=== PATIENT | male | born 1940 | race Caucasian/White ===

== ENCOUNTER 2017-02-08 11:52 | Emergency (ER) | payer MEDICARE, OTHER ==
[2017-02-08] MEDS ORDERED: methylPREDNISolone Sod Succ/PF 125 MG/2 ML VIAL ONE (12:22)
[2017-02-08 12:42] LABS: #Basophils 0.1 thou/uL (0.0-0.2); #Eosinphils 0.1 thou/uL (0.0-0.7); #Monocytes 1.2 thou/uL (0.11-0.59); #Neutrophils 14.2 thou/uL (1.40-6.50); %Basophils 0.6 % (0.0-1.0); %Eosinophils 0.7 % (0.0-10.0); %Lymphocytes 11.4 % (21.0-51.0); %Monocytes 6.8 % (0.0-10.0); %Neutrophils 80.6 % (42.0-75.0); Hemoglobin 16.1 g/dL (14.0-18.0); Mean Corpuscular HGB CONC 31.1 g/dL (32.0-36.0); Mean Corpuscular Hemoglobin 25.4 pg (27.0-31.0); Mean Corpuscular Volume 81.8 fl (80.0-94.0); Platelet Count 244 thou/uL (130-400); Red Blood Cell (RBC) Count 6.34 mill/uL (4.70-6.10); White Blood Cell (WBC) Count 17.6 thou/uL (4.8-10.8)
--- NOTE | 2017-02-08 12:47 | RAD ---
RADIOGRAPH CHEST 2 VIEWS: HISTORY: A 76-year-old male with cough, chills, hypotension, and chest congestion. FINDINGS: The thoracic aorta is tortuous and ectatic. There is no evidence of air space density, pneumothorax, or pulmonary edema. There is no cardiomegaly or pleural effusion. IMPRESSION: 1) No acute cardiopulmonary findings. 2) Ectasia of thoracic aorta. elza [] POS: [facility]
[2017-02-08 13:00] LABS: Anion Gap 16 mmol/L (10-20); BUN (Urea Nitrogen) 19 mg/dL (8.4-25.7); Calc. Creatinine Clearance 0 mL/min (70-130); Calcium 9.4 mg/dL (7.8-10.44); Carbon Dioxide 24 mmol/L (23-31); Chloride 103 mmol/L (98-107); Estimated GFR-MDRD 48; Glucose 114 mg/dL (83-110); Sodium 139 mmol/L (136-145)
[2017-02-08 13:04] LABS: CKMB 0.8 ng/mL (0-6.6); Troponin I 0.017 ng/mL (< 0.028)
[2017-02-08] MEDS ORDERED: Doxycycline Hyclate 100 MG TAB ONE (13:49)
== END 2017-02-08 14:50 | disposition home or self-care (01) ==
LOC: SCSER 11:52
DX: J40 Bronchitis, not specified as acute or chronic (principal); K21.9 Gastro-esophageal reflux disease without esophagitis; E78.5 Hyperlipidemia, unspecified; I10 Essential (primary) hypertension; Z87.891 Personal history of nicotine dependence; Z79.899 Other long term (current) drug therapy; Z79.84 Long term (current) use of oral hypoglycemic drugs
CPT/HCPCS: 71020; 80048; 82553; 83880; 84484; 85025; 93005; J2930; J7620

== ENCOUNTER 2018-02-04 06:15 | Outpatient (CLI) | payer MEDICARE, OTHER ==
[2018-02-04 13:43] LABS: #Eosinphils 0.2 thou/uL (0.0-0.7); #Lymphocytes 1.1 thou/uL (1.20-3.40); #Monocytes 0.8 thou/uL (0.11-0.59); #Neutrophils 8.5 thou/uL (1.40-6.50); %Eosinophils 1.5 % (0.0-10.0); %Lymphocytes 10.6 % (21.0-51.0); %Monocytes 7.7 % (0.0-10.0); %Neutrophils 80.2 % (42.0-75.0); Hemoglobin 15.8 g/dL (14.0-18.0); Mean Corpuscular HGB CONC 31.2 g/dL (32.0-36.0); Mean Corpuscular Hemoglobin 26.8 pg (27.0-31.0); Mean Corpuscular Volume 85.9 fL (78.0-98.0); Mean Platelet Volume 9.7 fL (7.4-10.4); Platelet Count 230 thou/uL (130-400); RBC Distribution Width 14.2 % (11.5-14.5); Red Blood Cell (RBC) Count 5.89 mill/uL (4.70-6.10); White Blood Cell (WBC) Count 10.5 thou/uL (4.8-10.8)
[2018-02-04 13:52] LABS: PTT 28.7 SEC (22.9-36.1)
[2018-02-04 13:53] LABS: INR-International Normal Ratio 1.1; Prothrombin Time 13.9 SEC (12.0-14.7)
[2018-02-04 14:07] LABS: Anion Gap 13 mmol/L (10-20); BUN (Urea Nitrogen) 26 mg/dL (8.4-25.7); Bilirubin Negative (Negative); Blood, Urine Negative (Negative); Calc. Creatinine Clearance 0 mL/min (70-130); Calcium 9.5 mg/dL (7.8-10.44); Carbon Dioxide 25 mmol/L (23-31); Chloride 109 mmol/L (98-107); Clarity CLOUDY (Clear); Estimated GFR-MDRD 72; Glucose 112 mg/dL (83-110); Glucose, Urine (Dipstick) Negative (Negative); Leukocyte Negative (Negative); Nitrite Negative (Negative); Potassium 3.8 mmol/L (3.5-5.1); Protein, Urine (Dipstick) Negative (Neg-Trace); Sodium 143 mmol/L (136-145); Specific Gravity, Urine 1.029 (1.002-1.036); pH, Urine 5.5 (5.0-9.0)
[2018-02-04 14:09] LABS: Bacteria/HPF None Seen HPF (None Seen); Hyaline Casts/LPF 0-3 HYALINE CAST LPF (0-3 Hyaline); Squamous Epithelial None Seen HPF (0-3); WBC/HPF 0-3 HPF (0-3)
[2018-02-04 14:29] LABS: RBC/HPF 0-3 HPF (0-3)
== END 2018-02-04 06:16 | disposition home or self-care (01) ==
LOC: LABBT 06:15
PROVIDERS: ATTEND Orthopaedic Surgery
DX: Z01.818 Encounter for other preprocedural examination (principal); M17.0 Bilateral primary osteoarthritis of knee
CPT/HCPCS: 80048; 81001; 85025; 85610; 85730; 87081; 93005; 93010

== ENCOUNTER 2018-02-04 13:30 | Inpatient (IN) | payer MEDICARE, OTHER ==
[2018-02-23] MEDS ORDERED: Promethazine HCl 25 MG/ML VIAL IM PRN ×3 (07:00→10:41)
[2018-02-23] MEDS ORDERED: Fentanyl 100 MCG/2 ML VIAL SLOW IVP PRN ×2 (07:00)
[2018-02-23] MEDS ORDERED: diphenhydrAMINE 25 MG CAP PO PRN (07:00)
[2018-02-23] MEDS ORDERED: HYDROcodone/Acetaminophen 10/325 mg Tablet PO PRN ×2 (07:00)
[2018-02-23] MEDS ORDERED: Ondansetron PF 4 MG/2 ML Vial IVP PRN ×2 (07:00→08:56)
[2018-02-23] MEDS ORDERED: Zolpidem Tartrate 5 MG TAB PO PRN ×2 (07:00→08:56)
[2018-02-23] MEDS ORDERED: Acetaminophen 325 MG TAB PO PRN (07:00)
[2018-02-23] MEDS ORDERED: Tranexamic Acid 1,000 MG/10 ML VIAL ONE (07:50)
[2018-02-23] MEDS ORDERED: Levofloxacin 500 mg/D5W 100 ml Premix Bag ONE (07:50)
[2018-02-23] MEDS ORDERED: Sodium Chloride 0.9% 100 ML ONE (07:50)
[2018-02-23] MEDS ORDERED: Fentanyl 100 MCG/2 ML VIAL ONE ×3 (08:29→11:29)
[2018-02-23] MEDS ORDERED: Midazolam HCl 2 mg/2 ml Vial ONE (08:29)
[2018-02-23] MEDS ORDERED: traMADol HCl 50 MG TAB PO PRN ×2 (08:56)
[2018-02-23] MEDS ORDERED: Fentanyl 100 MCG/2 ML VIAL IV PRN (08:57)
[2018-02-23] MEDS ORDERED: Vancomycin HCl 1.5 GM in Sodium Chloride 0.9% 250 ML 300 ML IVPB SCH ×2 (09:15→21:00)
[2018-02-23] MEDS ORDERED: Promethazine HCl 25 MG/ML VIAL SLOW IVP PRN (10:41)
[2018-02-23] MEDS ORDERED: PACU-Morphine 4MG/ML VIAL SLOW IVP PRN (10:41)
[2018-02-23] MEDS ORDERED: HYDROmorphone 2 MG/ML VIAL SLOW IVP PRN (10:41)
[2018-02-23] MEDS ORDERED: Ondansetron HCl/PF 4 MG/2 ML Vial IVP PRN (10:41)
--- NOTE | 2018-02-23 12:37 | RAD ---
TWO VIEWS LEFT KNEE: History: Status post arthroplasty. Comparison: None. FINDINGS: There are findings compatible with left knee arthroplasty. Post-operative changes are noted. Alignmen t is near anatomic. Vascular calcifications are identified. IMPRESSION: Findings compatible with left knee arthroplasty. POS: [facility]
[2018-02-23] MEDS ORDERED: Bupivacaine 0.25% HCL 30 ML VIAL ONE (13:40)
[2018-02-23] MEDS ORDERED: Ropivacaine 0.5% HCl/PF (150 MG/30 ML VIAL) ONE (13:40)
[2018-02-23] MEDS ORDERED: Ketorolac Tromethamine 30 MG/ML VIAL IVP SCH (14:00)
[2018-02-23] MEDS ORDERED: PROPOFOL 200 MG/20 ML VIAL ONE (14:39)
[2018-02-23] MEDS ORDERED: Lidocaine 1% PF 5 ML VIAL ONE (14:39)
[2018-02-23] MEDS ORDERED: Ketorolac Tromethamine 30 MG/ML VIAL ONE (14:39)
[2018-02-23] MEDS ORDERED: ePHEDrine/0.9% NaCl/PF SYRINGE 50 mg/10 ml ONE (14:39)
[2018-02-23] MEDS ORDERED: Dexamethasone 20 MG/5 ML VIAL ONE (14:39)
[2018-02-23] MEDS ORDERED: Ondansetron PF 4 MG/2 ML Vial ONE (14:39)
[2018-02-23] MEDS: metFORMIN 500 MG TAB PO SCH (15:14)
[2018-02-23] MEDS: Sodium Chloride 0.9% 1,000 ML IV SCH ×2 (15:14→17:54)
[2018-02-23] MEDS: Amlodipine 5 MG TAB PO SCH (15:14)
[2018-02-23] MEDS: Brimonidine Tartrate 0.2% Ophth Soln 5 ml Bottle EA EYE SCH ×2 (15:15→21:00)
[2018-02-23] MEDS: Atorvastatin Calcium 10 MG TAB PO SCH (15:15)
[2018-02-23] MEDS: Losartan 25 MG TAB PO SCH (15:15)
[2018-02-23] MEDS: Ketorolac Tromethamine 30 MG/ML VIAL IVP SCH ×2 (15:15→17:53)
[2018-02-23] MEDS: Famotidine 20 MG TAB PO SCH (15:15)
[2018-02-23] MEDS: Timolol 0.5% Ophth Soln 5 ml Bottle EA EYE SCH ×2 (15:15→21:00)
[2018-02-23] MEDS: Carvedilol 6.25 MG TAB PO SCH ×2 (15:15→20:40)
[2018-02-23] MEDS: Aspirin 81 mg Enteric Coated Tablet PO SCH ×2 (15:15→20:40)
[2018-02-23 16:07] VITALS: BMI 32.1
[2018-02-23] MEDS ORDERED: HumaLOG 300 UNITS/3 ML VIAL SC PRN ×2 (17:13)
[2018-02-23] MEDS ORDERED: Dextrose 5% in Water 1,000 ML IV PRN (17:13)
[2018-02-23] MEDS ORDERED: Dextrose 50% Abboject 50 ML SYRINGE SLOW IVP PRN (17:13)
--- NOTE | 2018-02-23 18:06 | OP ---
DATE OF PROCEDURE: 02/23/2018 PREOPERATIVE DIAGNOSIS: Degenerative joint disease, left knee. POSTOPERATIVE DIAGNOSIS: Degenerative joint disease, left knee. PROCEDURE PERFORMED: Left total knee replacement using Paulette Triathlon 6 femur, 6 tibia, 9 mm CS X3 polyethylene, and a 32 patella. CIVIL CELEBRANT: Dr. Barr. PROCEDURE IN DETAIL: After informed consent was obtained in the preoperative holding area, the patient was taken to the operative suite where general anesthesia was induced. Once adequate level of general anesthesia was obtained, the patient was positioned and a well-padded tourniquet was placed around the left proximal thigh. The left lower extremity was then prepped and draped in the usual sterile fashion. Prior to exsanguination, a time-out was called and all members of the surgical team agreed upon site, surgeon, and patient. The extremity was then exsanguinated and the tourniquet was raised. A midline longitudinal incision was then made directly over the patella extending 2 fingerbreadths above the superior pole of the patella and 2 fingerbreadths inferior to the inferior patellar pole of the patella. Deeper subcutaneous layers were dissected sharply and local bleeding was controlled with Bovie electrocautery. A quad tendon longitudinal split was then made sharply and a median parapatellar arthrotomy was carried out both sharp and with Bovie electrocautery, carried down to 1 fingerbreadth medial to the tibial tubercle. The knee was then placed into flexion and the patella was everted nicely, and a copious fat pad ectomy was performed allowing for greater exposure of the tibia. The computer-assisted distal femoral fiducial was then placed and pinned firmly, and the distal femoral cutting guide was pinned firmly into place. The oscillating saw was then used to remove the appropriate amount of bone. The 4-in-1 cutting block was then placed on the distal femur and the oscillating saw was used to remove the appropriate amount of bone off the anterior, posterior, and chamfer cuts. After completion of bone cuts, the anterior cruciate ligament was resected sharply and the posterior cruciate ligament retractor was placed and the tibia was subluxed for better exposure. Partial meniscectomies were carried out, and the tibial computer-assisted fiducial was pinned, and the cutting guide was placed. Oscillating saw was then used to remove the bone, with Hohmann retractors used to take care and protect the collateral ligaments. After the tibial resection was performed, a laminar cloth spreader screen printing was placed in between the freshened bone cuts. The knee placed at 90 degrees and further bilateral meniscectomies were carried out, and the curved osteotome and curettage were used to remove any excess bone spurs in the posterior compartment. The trial femoral component, tibial baseplate were placed with the appropriate polyethylene trial insert with an appropriate polyethylene spacer and patellar button. The knee was taken through full range of motion with flexion and extension from 0 to 90 degrees and patellar broach squarely in the trochlea without any squinting or subluxation noted. The knee was also stable to varus and valgus stressing at 0, 15, 45, and 90 degrees of flexion. The drawer was negative. All trial components were then removed and the keel punch was used to provide the appropriate defect in the tibia with a mallet. The freshened bone cuts were copiously irrigated with pulsatile lavage of about 1.5 L to remove all excess debris. The freshened bone cuts were then dried with suction and lap sponge. The knee was placed in flexion and retractors were placed to provide access to all bone cuts. Tobramycin-impregnated methyl methacrylate cement was then placed on the freshened bone cuts and implants which were malleted firmly into place. Curettage and [place] elevators were used to remove any excess bone cement. The knee was placed into full extension and the patellar button was placed under compression, and the cement was allowed to cure. Once completed, the components were again taken through full range of motion and copious irrigation of the knee was carried out with another liter of normal saline. All components were inspected fully with full range of motion and varus and valgus stressing. There was no laxity noted and full extension was observed clinically. Primary closure was accomplished with #2 interrupted Vicryl stitch of the arthrotomy defect. This was oversewn with a #2 running Quill barbed stitch. The gravitational platelet system was then injected into the arthrotomy prior to closure. The subcutaneous layer was then closed with a running 0 barbed Monocryl stitch and skin closure accomplished with a running subcuticular 3-0 Monocryl barbed Quill stitch and augmented with cement on the skin. Tourniquet was lowered. Good spontaneous return of distal pulses was noted clinically and a sterile dressing was applied to the incision. The procedure was terminated without any complications. The patient was awakened in the operative suite, and the patient was taken to the recovery room in stable condition.. Job ID: [id number]
[2018-02-24] MEDS: Ketorolac Tromethamine 30 MG/ML VIAL IVP SCH ×5 (00:17→23:49)
--- NOTE | 2018-02-24 00:27 | CON ---
DATE OF CONSULTATION: PRIMARY CARE PHYSICIAN: Dr. Aditya Prieto. PRIMARY TEAM: Ortho, Dr. Durand. REASON FOR CONSULTATION: Medical management. HISTORY OF PRESENT ILLNESS: This is a 77-year-old white male with a known history of diabetes mellitus type 2, hypertension, and hyperlipidemia, who came in for a total left knee arthroplasty. This was performed by Dr. Durand this morning. He is doing well postoperatively this afternoon. The patient denies any current complaints. PAST MEDICAL HISTORY: 1. Diabetes mellitus type 2, on metformin only. 2. Hypertension. 3. Hyperlipidemia. 4. [facility], [facility] phlebotomy to control his blood counts. 5. Psoriatic arthritis. PAST SURGICAL HISTORY: 1. Laparoscopic cholecystectomy. 2. Left first and second toe resections/repair after trauma to his foot. 3. Trigger finger release in the left hand. 4. Left pinky toe surgery. 5. Cystoscopy with bladder biopsy. SOCIAL HISTORY: The patient is . He has 4 children. His son and [id number] are at the bedside. He has a previous history of smoking cigarettes, quit in 1990. No other tobacco use. Very rare alcohol use. No illicit drugs. FAMILY HISTORY: Father , diagnosed with stroke. Mother , had diagnosis of breast cancer. No other medical problems running in the family. ALLERGIES: PENICILLIN CAUSES A RASH. MEDICATIONS: 1. Vitamin C 500 mg at night. 2. Medrol 4 mg daily. 3. Amlodipine 2.5 mg each morning. 4. Aspirin 81 mg daily. 5. Lipitor 10 mg daily. 6. Combigan 0.2%/0.5% eyedrops one drop in each eye twice a day. 7. Carvedilol 12.5 mg twice a day. 8. Famotidine 10 mg daily. 9. Losartan 50 mg daily. 10. Metformin 500 mg daily. REVIEW OF SYSTEMS: CONSTITUTIONAL: No fevers, no chills. No weight changes. EYES: No double vision or blurred vision. ENT: No congestion, drainage, or sore throat. CARDIOVASCULAR: No chest pain. No palpitations or racing heart. PULMONARY: No coughing, wheezing, or shortness of breath. GASTROINTESTINAL: No abdominal pain. No nausea, vomiting. No diarrhea or constipation. GENITOURINARY: No dysuria or hematuria. MUSCULOSKELETAL: He had some arthritic pains in his left knee. No other musculoskeletal complaints. SKIN: No rashes or lesions noted. NEUROLOGIC: No numbness, tingling, or focal weakness. He does intermittently have some dizziness when he bends over, but this is not persistent. PHYSICAL EXAMINATION: VITAL SIGNS: Blood pressure 154/88, pulse 77, respirations 18, O2 saturation 100% on 2 L, temperature 97.1. GENERAL: This is a well-developed, obese white male, in no acute distress. HEENT: Pupils equal, round, and reactive to light. Oropharynx clear without lesions, erythema, or exudate. NECK: Supple. No lymphadenopathy. No thyroid nodules or enlargement. No JVD. HEART: Regular rate and rhythm. No murmurs, rubs, or gallops. LUNGS: Clear to auscultation bilaterally. No wheezes, crackles, or rhonchi. ABDOMEN: Soft, nontender to palpation. Normoactive bowel sounds. No hepatosplenomegaly or other masses. EXTREMITIES: No clubbing, cyanosis, or edema. He has a dressing over his left knee. It is clean, dry, and intact. He has ice on the knee as well. SKIN: No rashes or lesions noted. NEUROLOGIC: He has intact sensation in all extremities. No facial droop. Good strength in all extremities. PSYCHIATRIC: Alert and oriented x3. Normal mood and affect. LABORATORY DATA: Preoperative labs done at the end of January show normal CBC, normal coagulation profile, normal urinalysis, and basic metabolic panel notable for chloride of 109, BUN of 26, and a glucose of 112. The rest was normal. ASSESSMENT: 1. Psoriatic arthritis with bad arthritis of the left knee, status post left total knee arthroplasty, doing well postoperatively. 2. Diabetes mellitus type 2, on single dose metformin daily. We will check fingerstick blood sugars, low dose insulin sliding scale and continue patient's metformin. 3. Hypertension. Resume patient's blood pressure medications and monitor. 4. Hyperlipidemia. Resume statin. 5. Polycythemia. 6. Psoriatic arthritis. We will resume patient's home medications. He holding his methylprednisolone for right now, resuming all other medicines. 7. Gastrointestinal prophylaxis. We will continue patient's H2 gorge. 8. Deep venous thrombosis prophylaxis. The patient has SCD on his right leg. CODE STATUS: Discussed this with the patient, he is a full code. Should he be incapacitated, his son will be his medical decision maker, his name is Ezra Ramos. Job ID: [id number]
[2018-02-24] MEDS: Sodium Chloride 0.9% 1,000 ML IV SCH ×2 (03:13→13:53)
[2018-02-24 07:21] LABS: Hemoglobin 14.1 g/dL (14.0-18.0); Mean Corpuscular Hemoglobin 27.3 pg (27.0-31.0); Mean Corpuscular Volume 85.2 fL (78.0-98.0); Mean Platelet Volume 9.7 fL (7.4-10.4); Platelet Count 157 thou/uL (130-400); RBC Distribution Width 14.3 % (11.5-14.5); Red Blood Cell (RBC) Count 5.19 mill/uL (4.70-6.10)
[2018-02-24] MEDS: Multivitamin W/ Minerals 1 TAB PO SCH (09:05)
[2018-02-24] MEDS: Atorvastatin Calcium 10 MG TAB PO SCH (09:05)
[2018-02-24] MEDS: Aspirin 81 mg Enteric Coated Tablet PO SCH ×2 (09:05→20:25)
[2018-02-24] MEDS: metFORMIN 500 MG TAB PO SCH (09:05)
[2018-02-24] MEDS: Senokot S 8.6-50 MG TAB PO SCH ×2 (09:05→20:25)
[2018-02-24] MEDS: Amlodipine 5 MG TAB PO SCH (09:06)
[2018-02-24] MEDS: HYDROcodone/Acetaminophen 5/325 mg Tablet PO PRN ×2 (09:06→13:26)
[2018-02-24] MEDS: Ferrous Gluconate 324 MG TAB PO SCH ×2 (09:07→17:55)
[2018-02-24] MEDS: Carvedilol 6.25 MG TAB PO SCH ×2 (09:11→20:25)
[2018-02-24] MEDS: Timolol 0.5% Ophth Soln 5 ml Bottle EA EYE SCH ×2 (09:12→20:27)
[2018-02-24] MEDS: Famotidine 20 MG TAB PO SCH (09:12)
[2018-02-24] MEDS: Losartan 25 MG TAB PO SCH (09:12)
[2018-02-24] MEDS: Brimonidine Tartrate 0.2% Ophth Soln 5 ml Bottle EA EYE SCH ×2 (09:13→20:28)
[2018-02-24] MEDS: Ropivacaine HCl/PF 250 ML in Premix Bag 1 BAG NERVE BLCK SCH (13:54)
--- NOTE | 2018-02-24 14:50 | PDOC.PN ---
- Subjective Encounter Start Date: 02/24/18 Encounter Start Time: 14:20 Mr. Ramos was seen today in follow-up of medical management of HTN and DM following knee replacement surgery. He does not have any complaints this afternoon - Objective Resuscitation Status - Order Detail: 02/23/18 17:13 Resuscitation Status Routine Resuscitation Status: FULL: Full Resuscitation Discussed with: Patient AAKASH Reviewed: Yes Vital Signs & Weight: Vital Signs (12 hours) Temp Pulse Resp BP BP Pulse Ox 02/24/18 12:45 97.8 F 70 18 107/69 93 L 02/24/18 09:12 70 129/84 02/24/18 09:11 129/84 02/24/18 09:06 70 129/84 02/24/18 07:33 97.8 F 70 18 129/84 93 L 02/24/18 04:00 98.7 F 75 20 155/84 H 93 L Weight Admit Weight 250 lb Weight 250 lb I&O: 02/23/18 02/24/18 02/25/18 06:59 06:59 06:59 Intake Total 1220 Output Total 625 Balance 595 Result Diagrams: 02/24/18 06:23 Additional Labs: Accuchecks 02/24/18 02/24/18 02/23/18 12:44 05:25 20:45 POC Glucose 171 H 129 H 151 H Phys Exam - Physical Examination HEENT: PERRLA Respiratory: no wheezing, no rales, no rhonchi, clear to auscultation bilateral Cardiovascular: RRR, no significant murmur, no rub Gastrointestinal: soft, non-tender, no distention, positive bowel sounds Musculoskeletal: pulses present, edema present Dx/Plan (1) Hypertension Code(s): I10 - ESSENTIAL (PRIMARY) HYPERTENSION Status: Chronic (2) Diabetes mellitus type 2 in obese Code(s): E11.69 - TYPE 2 DIABETES MELLITUS WITH OTHER SPECIFIED COMPLICATION; E66.9 - OBESITY, UNSPECIFIED Status: Chronic (3) Dyslipidemia Code(s): E78.5 - HYPERLIPIDEMIA, UNSPECIFIED Status: Chronic (4) Status post total left knee replacement Code(s): Z96.652 - PRESENCE OF LEFT ARTIFICIAL KNEE JOINT Status: Acute - Plan * HTN- blood pressure is well controlled- continue Amlodipine, and Carvediolol * DM- blood glucose is stable- continue Metformin and SSI * Dyslipidemia- stable * Continue PT/OT as per Orthopedic surgery.
[2018-02-25] MEDS: Sodium Chloride 0.9% 1,000 ML IV SCH ×3 (01:50→19:31)
[2018-02-25] MEDS: Ketorolac Tromethamine 30 MG/ML VIAL IVP SCH (05:26)
[2018-02-25 07:31] LABS: Hemoglobin 12.9 g/dL (14.0-18.0); Mean Corpuscular HGB CONC 31.7 g/dL (32.0-36.0); Mean Corpuscular Hemoglobin 27.1 pg (27.0-31.0); Mean Corpuscular Volume 85.5 fL (78.0-98.0); Mean Platelet Volume 9.4 fL (7.4-10.4); Platelet Count 135 thou/uL (130-400); RBC Distribution Width 14.4 % (11.5-14.5); Red Blood Cell (RBC) Count 4.74 mill/uL (4.70-6.10); White Blood Cell (WBC) Count 8.3 thou/uL (4.8-10.8)
[2018-02-25] MEDS: metFORMIN 500 MG TAB PO SCH (07:50)
[2018-02-25] MEDS: Ferrous Gluconate 324 MG TAB PO SCH ×2 (07:50→17:53)
[2018-02-25] MEDS: Famotidine 20 MG TAB PO SCH (09:04)
[2018-02-25] MEDS: Multivitamin W/ Minerals 1 TAB PO SCH (09:04)
[2018-02-25] MEDS: Aspirin 81 mg Enteric Coated Tablet PO SCH ×2 (09:04→21:02)
[2018-02-25] MEDS: Senokot S 8.6-50 MG TAB PO SCH ×2 (09:04→21:01)
[2018-02-25] MEDS: Atorvastatin Calcium 10 MG TAB PO SCH (09:05)
[2018-02-25] MEDS: Amlodipine 5 MG TAB PO SCH (09:05)
[2018-02-25] MEDS: Timolol 0.5% Ophth Soln 5 ml Bottle EA EYE SCH ×2 (09:06→21:04)
[2018-02-25] MEDS: Losartan 25 MG TAB PO SCH (09:06)
[2018-02-25] MEDS: Carvedilol 6.25 MG TAB PO SCH ×2 (09:06→21:01)
[2018-02-25] MEDS: Brimonidine Tartrate 0.2% Ophth Soln 5 ml Bottle EA EYE SCH ×2 (09:10→21:05)
[2018-02-25] MEDS: HYDROcodone/Acetaminophen 5/325 mg Tablet PO PRN ×2 (10:39→15:15)
[2018-02-25] MEDS: Ropivacaine HCl/PF 250 ML in Premix Bag 1 BAG NERVE BLCK SCH (15:57)
[2018-02-26] MEDS: Sodium Chloride 0.9% 1,000 ML IV SCH (04:37)
[2018-02-26 08:17] VITALS: TEMP 98.5
[2018-02-26] MEDS: Timolol 0.5% Ophth Soln 5 ml Bottle EA EYE SCH (08:52)
[2018-02-26] MEDS: Brimonidine Tartrate 0.2% Ophth Soln 5 ml Bottle EA EYE SCH (08:53)
[2018-02-26] MEDS: Famotidine 20 MG TAB PO SCH (08:53)
[2018-02-26] MEDS: Senokot S 8.6-50 MG TAB PO SCH (08:53)
[2018-02-26] MEDS: Multivitamin W/ Minerals 1 TAB PO SCH (08:53)
[2018-02-26] MEDS: Aspirin 81 mg Enteric Coated Tablet PO SCH (08:55)
[2018-02-26] MEDS: Carvedilol 6.25 MG TAB PO SCH (08:55)
[2018-02-26] MEDS: Losartan 25 MG TAB PO SCH (08:55)
[2018-02-26] MEDS: Amlodipine 5 MG TAB PO SCH (08:56)
[2018-02-26] MEDS: Atorvastatin Calcium 10 MG TAB PO SCH (08:56)
[2018-02-26] MEDS: Ferrous Gluconate 324 MG TAB PO SCH (08:56)
[2018-02-26 08:57] VITALS: BP 106/70
[2018-02-26] MEDS: metFORMIN 500 MG TAB PO SCH (08:57)
[2018-02-26] MEDS: HYDROcodone/Acetaminophen 5/325 mg Tablet PO PRN (09:57)
== END 2018-02-26 10:35 | disposition swing bed (61) | DRG 470 ==
LOC: SURG A 02-23 06:27 → EDSTATUS 02-23 13:30 → SURG B 02-23 15:24
PROVIDERS: ADMIT Orthopaedic Surgery; ATTEND Orthopaedic Surgery
PROC: 0SRD0J9 Replacement of Left Knee Joint with Synthetic Substitute, Cemented, Open Approach (ICD-10-PCS; principal; 2018-02-23)
DX: M17.12 Unilateral primary osteoarthritis, left knee (principal); E11.9 Type 2 diabetes mellitus without complications; I10 Essential (primary) hypertension; E78.5 Hyperlipidemia, unspecified; D75.1 Secondary polycythemia; L40.50 Arthropathic psoriasis, unspecified; Z90.49 Acquired absence of other specified parts of digestive tract; Z98.890 Other specified postprocedural states; Z87.891 Personal history of nicotine dependence; Z79.84 Long term (current) use of oral hypoglycemic drugs; Z79.82 Long term (current) use of aspirin; Z79.899 Other long term (current) drug therapy
CPT/HCPCS: 36415; 36416; 85027; 96374; C1713; C1776; J1100; J1885; J1956; J2001; J2250; J2405; J2704; J2795; J3010; J3370; J7050; S0020

== ENCOUNTER 2018-11-09 08:04 | Outpatient (CLI) | payer MEDICARE, OTHER ==
--- NOTE | 2018-11-09 09:57 | BD ---
BONE DENSITOMETRY: Date: 11/09/18 HISTORY: 77-year-old male. Osteoporosis screening. FINDINGS: Lumbar Spine: BMD (g/cm2) L1 1.096 T-Score: 0.2 L2 1.231 T-Score: 1.2 L3 1.165 T-Score: 0.6 L4 1.280 T-Score: 1.7 Total 1.198 T-Score: 1.0 Right Femoral Neck: 0.719 T-Score: -1.5 Total Femur: 0.925 T-Score: -0.7 Left Femoral Neck: 0.711 T-Score: -1.67 Total Femur: 0.881 T-Score: -1.0 IMPRESSION: 1. Bone mineral density of both hips indicate osteopenia. 2. Bone mineral density of the lumbar spine within normal range. 10 YEAR FRACTURE RISK: Major osteoporotic fracture: 6.6% Hip fracture: 2.0% POS: [facility]
== END 2018-11-09 08:05 | disposition home or self-care (01) ==
LOC: BICMAMMO 08:04
PROVIDERS: ATTEND Internal Medicine Rheumatology
DX: M81.0 Age-related osteoporosis without current pathological fracture (principal); M85.851 Other specified disorders of bone density and structure, right thigh; M85.852 Other specified disorders of bone density and structure, left thigh
CPT/HCPCS: 77080

== ENCOUNTER 2019-01-30 10:54 | Emergency (ER) | payer MEDICARE, OTHER ==
[2019-01-30] MEDS ORDERED: Bacitracin 1 PK ONE (11:04)
[2019-01-30] MEDS ORDERED: Adacel (T-DAP) 0.5 ML SYRINGE ONE (11:11)
[2019-01-30] MEDS ORDERED: Lidocaine 1% w/Epinephrine 1:100K 20 ML VIAL ONE (11:16)
--- NOTE | 2019-01-30 12:35 | RAD ---
EXAM: XR Knee Lt 4 View STANDARD PROVIDED CLINICAL HISTORY: Pain FINDINGS: There is no evidence for fracture or other acute osseous abnormality. Alignment appears anatomic. Pos toperative changes of left total knee arthroplasty without evidence for hardware complication. Vascular calcifications are seen. Cutaneous karla overlie the anterior aspect of the. IMPRESSION: No evidence for an acute osseous abnormality. If there is persistent clinical concern, conservative m anagement and follow-up imaging advised.
== END 2019-01-30 12:40 | disposition home or self-care (01) ==
LOC: ERS 10:54
DX: S81.012A Laceration without foreign body, left knee, initial encounter (principal); K21.9 Gastro-esophageal reflux disease without esophagitis; E78.5 Hyperlipidemia, unspecified; E78.00 Pure hypercholesterolemia, unspecified; I10 Essential (primary) hypertension; Z87.891 Personal history of nicotine dependence; Z79.84 Long term (current) use of oral hypoglycemic drugs; Z79.82 Long term (current) use of aspirin; Z79.899 Other long term (current) drug therapy; V91.39XA Hit or struck by falling object due to accident to unspecified watercraft, initial encounter
CPT/HCPCS: 12034; 90471; 90715

== ENCOUNTER 2019-03-07 10:21 | Outpatient (CLI) | payer MEDICARE, OTHER ==
--- NOTE | 2019-03-07 11:05 | RAD ---
EXAM: Chest PA and lateral: HISTORY: Cough COMPARISON: 02/08/2017 FINDINGS: Lung henao are clear. Vascular markings are normal. Heart is mildly enlarged but is stable. Osseous structures are unremarkable. IMPRESSION: No acute finding
== END 2019-03-07 10:22 | disposition home or self-care (01) ==
LOC: SCSRAD 10:21
PROVIDERS: ATTEND Nurse Practitioner Family
DX: J40 Bronchitis, not specified as acute or chronic (principal)
CPT/HCPCS: 71046

== ENCOUNTER 2019-12-21 08:16 | Outpatient (CLI) | payer MEDICARE, OTHER ==
--- NOTE | 2019-12-21 09:25 | RAD ---
CHEST 2 VIEWS: Date: 12/21/2019 HISTORY: Arthropathic psoriasis, unspecified. COMPARISON: 03/07/2019. FINDINGS: Heart size is within normal limits. The lungs are clear of acute process. No pneumonia, edema, pleura l effusion, or other acute process. IMPRESSION: No significant acute intrathoracic disease. Stable from prior study. POS: [facility]
== END 2019-12-21 08:17 | disposition home or self-care (01) ==
LOC: BICRAD 08:16
PROVIDERS: ATTEND Internal Medicine Rheumatology
DX: L40.50 Arthropathic psoriasis, unspecified (principal)
CPT/HCPCS: 71046

== ENCOUNTER 2020-01-13 14:44 | Outpatient (CLI) | payer MEDICARE, OTHER ==
--- NOTE | 2020-01-13 15:19 | BD ---
Exam: DEXA Bone Density 01/13/20 HISTORY: Age-related osteoporosis. Lumbar Spine: BMD (g/cm2) T-SCORE Z-SCORE L1 1.146 0.7 1.7 L2 1.187 0.8 1.9 L3 1.151 0.4 1.5 L4 1.215 1.1 2.3 L1-L4 1.176 0.8 1.9 Femoral Neck: 0.652 -2.0 -0.6 Total Femur: 0.830 -1.3 -0.4 There has been interval reduction of 1.8% in the BMD of the lumbar spine and reduction of 5.8% in the BMD of the proximal femur since 11/09/18. The ten year fracture risk for a major osteoporotic fracture is 13% and for hip fracture is 5.2%. Impression: Osteopenia. POS: [facility]
== END 2020-01-13 14:45 | disposition home or self-care (01) ==
LOC: BICMAMMO 14:44
PROVIDERS: ATTEND Internal Medicine Rheumatology
DX: M81.0 Age-related osteoporosis without current pathological fracture (principal); M85.859 Other specified disorders of bone density and structure, unspecified thigh
CPT/HCPCS: 77080

== ENCOUNTER 2021-01-22 08:42 | Outpatient (CLI) | payer MEDICARE, OTHER | END 2021-01-22 08:43 | disposition home or self-care (01) | LOC: BICRAD 08:42 | PROVIDERS: ATTEND Internal Medicine Rheumatology | DX: R76.12 Nonspecific reaction to cell mediated immunity measurement of gamma interferon antigen response without active tuberculosis (principal) | CPT/HCPCS: 71046 ==

== ENCOUNTER 2022-02-24 10:03 | Outpatient (CLI) | payer MEDICARE, OTHER | END 2022-02-24 10:04 | disposition home or self-care (01) | LOC: BICRAD 10:03 | PROVIDERS: ATTEND Internal Medicine Rheumatology | DX: R76.12 Nonspecific reaction to cell mediated immunity measurement of gamma interferon antigen response without active tuberculosis (principal) | CPT/HCPCS: 71046 ==

== ENCOUNTER 2023-08-10 09:19 | Outpatient (CLI) | payer MEDICARE, OTHER | END 2023-08-10 09:20 | disposition home or self-care (01) | LOC: SCSRAD 09:19 | PROVIDERS: ATTEND Physician Assistant | DX: R76.12 Nonspecific reaction to cell mediated immunity measurement of gamma interferon antigen response without active tuberculosis (principal) | CPT/HCPCS: 71046 ==

== ENCOUNTER 2024-11-24 10:34 | Outpatient (CLI) | payer MEDICARE, OTHER | END 2024-11-24 10:35 | disposition home or self-care (01) | LOC: BICRAD 10:34 | PROVIDERS: ATTEND Internal Medicine Rheumatology | DX: L40.59 Other psoriatic arthropathy (principal) | CPT/HCPCS: 71045 ==